=== PATIENT | female | born 1955 | race Caucasian/White ===

== ENCOUNTER 2023-12-27 07:12 | Day surgery (SDC) | payer MEDICARE, SELFPAY ==
[2023-12-22 14:07] VITALS: BMI 27.6
--- NOTE | 2023-12-24 10:35 | HO.ANESPROP2 ---
Documented by User: Doris Palma NP 12/24/23 10:35 HPI - Anesthesia Eval Consult details Narrative: 68yo F for Right Cataract Extraction IOL Insertion Medically cleared No previous cataract on record [facility] Past Medical History Medical History (Updated 12/22/23 @ 15:21 by Rajni Christensen RN) Basal cell carcinoma Hypothyroid HTN (hypertension) Surgical History Surgical History (Updated 12/22/23 @ 15:22 by Rajni Christensen RN) H/O colonoscopy Social History Social History (Updated 12/22/23 @ 15:27 by Rajni Christensen RN) Patient Tobacco Use Status: Never used Tobacco Use of substances other than those prescribed or required for medical reasons: Yes Substance Use Type Other:: cbd occas. for insomnia Substance Use Frequency: Occasionally Are you DNR?: No Advance Directives: No Advance Directives Information Provided: Yes Meds Allergies Allergy/AdvReac Type Severity Reaction Status Date / Time No Known Allergies Allergy Verified 12/22/23 14:07 Home Medications Medication Instructions Recorded Confirmed Last Taken Type alendronate 70 mg tablet 70 mg PO QWEEK 12/22/23 12/22/23 Unknown History cholecalciferol (vitamin D3) 50 50 mcg PO DAILY 12/22/23 12/22/23 Unknown History mcg (2,000 unit) capsule (Vitamin D3) hydrochlorothiazide 12.5 mg tablet 12.5 mg PO QAM 12/22/23 12/22/23 Unknown History levothyroxine 25 mcg tablet 25 mcg PO DAILY 12/22/23 12/22/23 Unknown History lorazepam 0.5 mg tablet 0.5 mg PO BEDTIME 12/22/23 12/22/23 12/27/23 History omega 8-lvv-mie-fish oil 1,000 mg 1 cap PO DAILY 12/22/23 12/22/23 Unknown History (120 mg-180 mg) capsule (Fish Oil) Exam Height,Weight and Vital Signs: Height 5 ft 3 in Weight 70.58 kg Assessment and Plan Assessment Anesthesia Assessment: Chart Reviewed Documented by User: Tianna Mir MD 12/27/23 08:57 [facility] Past Medical History Medical History (Updated 12/22/23 @ 15:21 by Rajni Christensen RN) Basal cell carcinoma Hypothyroid HTN (hypertension) Family History Family history of problems with anesthesia: No Surgical History Surgical History (Updated 12/22/23 @ 15:22 by Rajni Christensen RN) H/O colonoscopy History of Problems with Anesthesia: No Social History Social History (Updated 12/22/23 @ 15:27 by Rajni Christensen RN) Patient Tobacco Use Status: Never used Tobacco Use of substances other than those prescribed or required for medical reasons: Yes Substance Use Type Other:: cbd occas. for insomnia Substance Use Frequency: Occasionally Are you DNR?: No Advance Directives: No Advance Directives Information Provided: Yes Meds Allergies Allergy/AdvReac Type Severity Reaction Status Date / Time No Known Allergies Allergy Verified 12/22/23 14:07 Home Medications Medication Instructions Recorded Confirmed Last Taken Type alendronate 70 mg tablet 70 mg PO QWEEK 12/22/23 12/22/23 Unknown History cholecalciferol (vitamin D3) 50 50 mcg PO DAILY 12/22/23 12/22/23 Unknown History mcg (2,000 unit) capsule (Vitamin D3) hydrochlorothiazide 12.5 mg tablet 12.5 mg PO QAM 12/22/23 12/22/23 Unknown History levothyroxine 25 mcg tablet 25 mcg PO DAILY 12/22/23 12/22/23 Unknown History lorazepam 0.5 mg tablet 0.5 mg PO BEDTIME 12/22/23 12/22/23 12/27/23 History omega 1-dye-gdb-fish oil 1,000 mg 1 cap PO DAILY 12/22/23 12/22/23 Unknown History (120 mg-180 mg) capsule (Fish Oil) Exam Airway Mallampati Class: II TM Dist: >3cm Neck ROM: Full Assessment and Plan Assessment Anesthesia Assessment: Anesthesia Plan Discussed Final Anesthetic Review Family History of Problems with Anesthesia: No History of Problems with Anesthesia: No ASA Class: II Final Preanesthetic Review: No Changes in Pt Med Stat, Meds/Allgs Chart Reviewed, Consent Obtained/Reviewed and Anes Risks/Benef Reviewed Patient Risk: Low Procedure Risk: Low Anesthetic Plan Anesthetic Plan: MAC: Disposition: Standard PACU
[2023-12-27 07:37] VITALS: BMI 26.6
[2023-12-27 07:45] VITALS: BP 143/89; PULSE 68; RESP 18; TEMP 36.4; O2SAT 96; BMI 26.6
[2023-12-27] MEDS: Lactated Ringers 500 ML 50 ML IV (08:17)
[2023-12-27] MEDS: Tetracaine HCl/PF 0.5% Oph Sol 4 ML DROPS 1 DROP EYE-RIGHT (08:20)
[2023-12-27] MEDS: Phenylephrine HCL 2.5% Oph SoL 2 ML BOTTLE 1 DROP EYE-RIGHT ×3 (08:20→08:26)
[2023-12-27] MEDS: Ketorolac Tromethamine 0.5% Op 5 ML DROPS 1 DROP EYE-RIGHT ×3 (08:21→08:27)
[2023-12-27] MEDS: Tropicamide 1 % Ophth Sol 3 ML BTL 1 DROP EYE-RIGHT ×3 (08:21→08:27)
[2023-12-27] MEDS: Cyclopentolate 1 % Ophth Sol 2 ML DRPBTL 1 DROP EYE-RIGHT ×3 (08:21→08:27)
--- NOTE | 2023-12-27 11:05 | MHC.SHP ---
Pre-Procedural Eval Section A - 24 Hr Update-Section A only Date of Service: 12/27/23 The patient is an INPATIENT: No Changes since office visit: No Cold of Flu in the past 2 weeks, No New Medical Problems, No Changes in Medication and No Patient answered all questions The patient has been examined within 24 hours of the surgical procedure. The History & Physical has been completed within 30 days and I have reviewed it.: Yes Section B - Complete if H&P > 30 days Chief Complaint: Age-related nuclear cataract, right eye Allergies: Allergies Allergy/AdvReac Type Severity Reaction Status Date / Time No Known Allergies Allergy Verified 12/22/23 14:07 Plan Diagnosis/Plan: Unchanged I have reviewed the history and physical and performed a pertinent physical examination on my patient. No changes have occurred unless specified. Time Spent With Patient Time: Total time managing care of this patient today ____ minutes.
--- NOTE | 2023-12-27 11:06 | HO.PNOPHT ---
Ophthalmology Procedure Procedure Date of Service: 12/27/23 Ophthalmology Viscoelastic: Healon Duet Dual Pack Pro Ophthalmology Lenses: Other (ma60 19) Procedure Notes: PREOPERATIVE DIAGNOSIS: Decreased visual acuity right eye secondary to cataract POSTOPERATIVE DIAGNOSIS: Same PROCEDURE: Right cataract extraction with intraocular lens insertion SURGEON: Moris Quinteros M.D. ANESTHESIA: Topical/MAC ESTIMATED BLOOD LOSS: None COMPLICATIONS: None After obtaining informed consent, the patient was brought to the operating room suite and placed in the supine position. After adequate sedation per anesthesia, topical drops of Tetracaine were given to the right eye. The eye was then prepped and draped in the usual sterile fashion. The operating room microscope was then positioned over the operative eye and a lid speculum placed. A paracentesis was created. Viscoelastic was then instilled into the anterior chamber. A three plane incision was then created temporally, utilizing a 2.85 mm keratome. Capsulotomy forceps were then utilized to create a circular tear capsulotomy. Hydrodissection and hydrodelineation were carried out until adequate mobilization of the nucleus occurred. Phacoemulsification was then utilized to remove the dense central nucleus followed by removal of the cortical material utilizing the automated aspiration irrigation unit. Viscoelastic was instilled into the posterior capsular bag followed by placement of a posterior chamber intraocular lens without difficulty. The residual Viscoelastic was then removed utilizing the automated IA machine. The wound was checked and found to be watertight. The patient tolerated the procedure well and the lid speculum was removed. Intracameral injection of Vigamox 0.1 mL followed by a subtenon injection of Kenalog-40 0.2 mL were administered. The patient will be seen in the a.m.
[2023-12-27 11:36] VITALS: BP 119/74; PULSE 65; RESP 12; TEMP 36.4; O2SAT 100
[2023-12-27 11:51] VITALS: BP 131/77; PULSE 57; RESP 16; TEMP 36.1; O2SAT 96
== END 2023-12-27 12:12 | disposition home or self-care (01) ==
PROVIDERS: PCP Internal Medicine; Visit Provider Ophthalmology
PROC: (CPT 66985; principal; 2023-12-27 09:10)
DX: H25.11 Age-related nuclear cataract, right eye (principal); H52.4 Presbyopia; Z83.511 Family history of glaucoma; H43.399 Other vitreous opacities, unspecified eye; H18.413 Arcus senilis, bilateral; I10 Essential (primary) hypertension; E03.9 Hypothyroidism, unspecified; M81.0 Age-related osteoporosis without current pathological fracture; Z79.899 Other long term (current) drug therapy; Z87.891 Personal history of nicotine dependence
CPT/HCPCS: 66984; J2250; J3010; J3301; V2630

== ENCOUNTER 2024-01-10 06:47 | Day surgery (SDC) | payer MEDICARE, SELFPAY ==
[2023-12-22 15:28] VITALS: BMI 27.6
[2024-01-10 07:41] VITALS: BMI 26.6
[2024-01-10 08:04] VITALS: BP 121/71; PULSE 59; RESP 15; TEMP 36.4; O2SAT 96
[2024-01-10] MEDS: Tetracaine HCl/PF 0.5% Oph Sol 4 ML DROPS 1 DROP EYE-LEFT (08:16)
--- NOTE | 2024-01-10 08:20 | HO.ANESPROP2 ---
HPI - Anesthesia Eval Consult details Narrative: Left eye cataract extraction IOL PMFSH Past Medical History Medical History Basal cell carcinoma Hypothyroid HTN (hypertension) Family History Family history of problems with anesthesia: No Surgical History Surgical History H/O colonoscopy History of Problems with Anesthesia: No Social History Social History Patient Tobacco Use Status: Never used Tobacco Use of substances other than those prescribed or required for medical reasons: Yes Substance Use Type Other:: edibles Substance Use Frequency: Occasionally Are you DNR?: No Advance Directives: No Advance Directives Information Provided: Yes Meds Allergies Allergy/AdvReac Type Severity Reaction Status Date / Time No Known Allergies Allergy Verified 12/22/23 14:07 Active Medications: Current Medications Povidone Iodine (Povidone Iodine 5 % Ophth Soln 30 Ml Bottle) 1 appl EYE-LEFT PREOP PRN PRN Reason: Pre-Op Surgical Implant Prophy Home Medications Medication Instructions Recorded Confirmed Last Taken Type alendronate 70 mg tablet 70 mg PO QWEEK 12/22/23 12/22/23 Unknown History cholecalciferol (vitamin D3) 50 50 mcg PO DAILY 12/22/23 12/22/23 Unknown History mcg (2,000 unit) capsule (Vitamin D3) hydrochlorothiazide 12.5 mg tablet 12.5 mg PO QAM 12/22/23 12/22/23 Unknown History levothyroxine 25 mcg tablet 25 mcg PO DAILY 12/22/23 12/22/23 Unknown History lorazepam 0.5 mg tablet 0.5 mg PO BEDTIME 12/22/23 12/22/23 12/27/23 History omega 5-pin-qjl-fish oil 1,000 mg 1 cap PO DAILY 12/22/23 12/22/23 Unknown History (120 mg-180 mg) capsule (Fish Oil) Exam Height,Weight and Vital Signs: Height 5 ft 3 in Weight 68.039 kg Last Vital Signs Temp 97.5 F 01/10/24 08:04 Pulse 59 01/10/24 08:04 Resp 15 01/10/24 08:04 BP 121/71 01/10/24 08:04 Pulse Ox 96 01/10/24 08:04 O2 Del Method Room Air 01/10/24 08:04 Airway Mallampati Class: II TM Dist: >3cm Neck ROM: Full Loose/Missing/Broken Teeth: No Heart: [id number] Lungs: cta b/l Assessment and Plan Assessment Anesthesia Assessment: Anesthesia Plan Discussed and Chart Reviewed Final Anesthetic Review Family History of Problems with Anesthesia: No History of Problems with Anesthesia: No NPO: Yes ASA Class: II Final Preanesthetic Review: No Changes in Pt Med Stat, Meds/Allgs Chart Reviewed, Consent Obtained/Reviewed and Anes Risks/Benef Reviewed Patient Risk: Intermediate Procedure Risk: Intermediate Assessment/Block/Sedation in SS: Assess/Block/Sedation-SS Anesthetic Plan Anesthetic Plan: MAC: Disposition: Standard PACU
[2024-01-10] MEDS: Cyclopentolate 1 % Ophth Sol 2 ML DRPBTL 1 DROP EYE-LEFT ×3 (08:21→08:34)
[2024-01-10] MEDS: Tropicamide 1 % Ophth Sol 3 ML BTL 1 DROP EYE-LEFT ×3 (08:22→08:35)
[2024-01-10] MEDS: Ketorolac Tromethamine 0.5% Op 5 ML DROPS 1 DROP EYE-LEFT ×3 (08:25→08:37)
[2024-01-10] MEDS: Phenylephrine HCL 2.5% Oph SoL 2 ML BOTTLE 1 DROP EYE-LEFT ×3 (08:26→08:38)
[2024-01-10] MEDS: Lactated Ringers 500 ML 50 ML IV (08:31)
--- NOTE | 2024-01-10 10:54 | MHC.SHP ---
Pre-Procedural Eval Section A - 24 Hr Update-Section A only Date of Service: 01/10/24 The patient is an INPATIENT: No Changes since office visit: No Cold of Flu in the past 2 weeks, No New Medical Problems, No Changes in Medication and No Patient answered all questions The patient has been examined within 24 hours of the surgical procedure. The History & Physical has been completed within 30 days and I have reviewed it.: Yes Section B - Complete if H&P > 30 days Chief Complaint: Age-related nuclear cataract, left eye Allergies: Allergies Allergy/AdvReac Type Severity Reaction Status Date / Time No Known Allergies Allergy Verified 12/22/23 14:07 Plan Diagnosis/Plan: Unchanged I have reviewed the history and physical and performed a pertinent physical examination on my patient. No changes have occurred unless specified. Time Spent With Patient Time: Total time managing care of this patient today ____ minutes.
--- NOTE | 2024-01-10 10:55 | HO.PNOPHT ---
Ophthalmology Procedure Procedure Date of Service: 01/10/24 Ophthalmology Viscoelastic: Healon Duet Dual Pack Pro Ophthalmology Lenses: Other (MA60 18) Procedure Notes: PREOPERATIVE DIAGNOSIS: Decreased visual acuity left eye secondary to cataract POSTOPERATIVE DIAGNOSIS: Same PROCEDURE: Left cataract extraction with intraocular lens insertion SURGEON: Moris Quinteros M.D. ANESTHESIA: Topical/MAC ESTIMATED BLOOD LOSS: None COMPLICATIONS: None After obtaining informed consent, the patient was brought to the operation room suite and placed in the supine position. After adequate sedation per anesthesia, topical drops of Tetracaine were given to the left eye. The eye was then prepped and draped in the usual sterile fashion. The operating room microscope was then positioned over the operative eye and a lid speculum placed. A paracentesis was created. Viscoelastic was then instilled into the anterior chamber. A three plane incision was then created temporally, utilizing a 2.85 mm keratome. Capsulotomy forceps were then utilized to create a circular tear capsulotomy. Hydrodissection and hydrodelineation were carried out until adequate mobilization of the nucleus occurred. Phacoemulsification was then utilized to remove the dense central nucleus followed by removal of the cortical material utilizing the automated aspiration irrigation unit. Viscoat elastic was instilled into the posterior capsular bag followed by placement of a posterior chamber intraocular lens without difficulty. The residual Viscoat elastic was then removed utilizing the automated IA machine. The wound was check and found to be watertight. The patient tolerated the procedure well and the lid speculum was removed. Intracameral injection of Vigamox 0.1 mL followed by a subtenon injection of Kenalog-40 0.2 mL were administered. The patient will be seen in the a.m.
[2024-01-10 12:22] VITALS: BP 123/88; PULSE 60; RESP 16; TEMP 36.4; O2SAT 97
== END 2024-01-10 12:38 | disposition home or self-care (01) ==
PROVIDERS: PCP Internal Medicine; Visit Provider Ophthalmology
PROC: (CPT 66985; principal; 2024-01-10 10:00)
DX: H25.12 Age-related nuclear cataract, left eye (principal); H52.4 Presbyopia; Z83.511 Family history of glaucoma; H18.413 Arcus senilis, bilateral; H43.399 Other vitreous opacities, unspecified eye; E03.9 Hypothyroidism, unspecified; M81.0 Age-related osteoporosis without current pathological fracture; Z79.899 Other long term (current) drug therapy
CPT/HCPCS: 66984; J2250; J3010; J3301; V2630